=== PATIENT | female | born 1980 | race Caucasian/White ===

== ENCOUNTER 2022-01-20 09:52 | Emergency (ER) | payer OTHER ==
[~2022-01-20] VITALS: Ht 165.1 cm; Wt 81.6 kg
[2022-01-20 10:44] LABS: Basophils # (auto) 0.1 10 ^3/uL (0-0.2); Basophils % (auto) 2.2 % (0.0-2.0); Eosinophils # (auto) 0 10 ^3/uL (0-0.8); Eosinophils % (auto) 0.1 % (0.0-7.0); Hematocrit 38.3 % (36.0-46.0); Hemoglobin 13.1 g/dL (12.2-16.2); Lymphocytes # (auto) 1.9 10 ^3/uL (0.4-5.4); Lymphocytes % (auto) 33.1 % (10.0-50.0); Mean Corpuscular Hemoglobin 29.3 pg (28.0-32.0); Mean Corpuscular Hgb Conc. 34.3 g/dL (32.0-36.0); Mean Corpuscular Volume 85.6 fL (80.0-100.0); Monocytes # (auto) 0.5 10 ^3/uL (0-1.3); Monocytes % (auto) 8.6 % (0.0-12.0); Neutrophils # (auto) 3.3 10 ^3/uL (1.6-8.6); Nucleated Red Blood Cells % 0.1 %; Red Blood Cells 4.47 10^6/uL (4.0-5.20); Red Cell Distribution Width 12.4 % (11.8-14.3); White Blood Cell 5.8 10^3/uL (4.4-10.8)
[2022-01-20 10:57] LABS: Albumin 3.3 g/dL (3.4-5.0); Calcium 9.1 mg/dL (8.5-10.1); Potassium 3.9 mmol/L (3.5-5.1)
[2022-01-20] MEDS ORDERED: SODIUM CHLORIDE 0.9% 1,000 ML IVB ONE (11:00)
[2022-01-20] MEDS ORDERED: SODIUM CHLORIDE 0.9% 1,000 ML IV ONE (11:00)
[2022-01-20 11:05] LABS: BUN/Creatinine Ratio 21.2; Total Protein 6.6 g/dL (6.4-8.2)
[2022-01-20 11:14] LABS: Bilirubin, Total 0.4 mg/dL (0.2-1.0)
[2022-01-20 15:05] LABS: Urine Bacteria MOD /hpf (None Seen); Urine Blood Negative /uL (Negative); Urine Specific Gravity 1.011 (1.001-1.035); Urine WBC 4 /hpf (0 - 5)
[2022-01-20 15:08] VITALS: BP 147/79
== END 2022-01-20 15:15 | disposition home or self-care (01) ==
LOC: ER 09:52 → EEVIPCON 09:52 → ER 15:15
DX: R55 Syncope and collapse (principal); E05.90 Thyrotoxicosis, unspecified without thyrotoxic crisis or storm; E06.9 Thyroiditis, unspecified; J84.10 Pulmonary fibrosis, unspecified; E44.1 Mild protein-calorie malnutrition; Z68.30 Body mass index [BMI] 30.0-30.9, adult; Z20.822 Contact with and (suspected) exposure to COVID-19; Z90.710 Acquired absence of both cervix and uterus
CPT/HCPCS: 36415; 71046; 71250; 76536; 80053; 81001; 83735; 84443; 84484; 85025; 85379; 87426; 93005; 96360; 96361; 99285; J7030